=== PATIENT | male | born 1990 | race Caucasian/White ===

== ENCOUNTER 2022-09-02 03:52 | Outpatient (CLI) | payer SELFPAY ==
[2022-09-02 13:46] LABS: ESR < 1 mm/hr (0-15)
[2022-09-02 14:05] LABS: Calculated LDL 198 mg/dL (<100); Cholesterol 268 mg/dL (<200); HDL Cholesterol 42 mg/dL (40-60); TSH (W/Ref FT4) 0.93 uIU/mL (0.36-3.74); Triglyceride 144 mg/dL (<150)
[2022-09-02 14:18] LABS: C-Reactive Protein < 0.05 mg/dL (0.0-0.3)
[2022-09-05 11:58] LABS: Apolipoprotein A1, S 99 mg/dL (>=120); Apolipoprotein B, S 143 mg/dL (See Comment); Apolipoprotein B/A 1 ratio 1.4 (See Comment)
== END 2022-09-02 03:53 | disposition home or self-care (01) ==
PROVIDERS: PCP Family Medicine; Visit Provider Family Medicine
DX: E78.00 Pure hypercholesterolemia, unspecified (principal)
CPT/HCPCS: 36415; 80061; 82172; 85652; 84443; 86140

== ENCOUNTER 2025-05-30 12:14 | Observation (INO) | payer SELFPAY ==
[2025-05-30] VITALS (42 sets, daily range): BP systolic 96–138; BP diastolic 63–89; PULSE 68–126; RESP 12–25; TEMP 36.5–36.7; O2SAT 95–99
--- NOTE | 2025-05-30 12:15 | RT.EKG_ITS ---
APPROVED REPORT Exam: Resting ECG Reason for Exam: chest pain Patient Location: E HR:72 bpm ECG Measurements Heart Rate 72 AXIS PA 149 P 57 QRSd 109 QRS 8 QT 372 T 4 QTc 407 Conclusion Sinus rhythm...normal P axis, V-rate 60- 99 No Occlusion ME
[2025-05-30] MEDS: Ondansetron 4 MG/2 ML VIAL IVP ×2 (12:38→21:56)
[2025-05-30] MEDS: Pantoprazole 40 MG VIAL 80 MG IVP (12:38)
--- NOTE | 2025-05-30 13:03 | ED.GENADUL_ITS ---
Discharge Plan Disposition Patient Disposition: Admit to [facility] Discharge Details Clinical Impression: Acute upper GI bleed Admit Date/Time: 05/30/25 14:26 Admit Provider: Derick Barton Attending Provider: Derick Barton Primary Care Provider: Darnell Potts ED Provider: Christian Sierra Discharge Data Discharge Date/Time-TO BE ENTERED AT DEPARTURE: 05/30/25 15:59 HPI General Date/Time Provider Initiated Documentation: 05/30/25 12:20 . HPI Narrative: MDM Stable appearing normotensive and not tachycardic no anticoagulant 34-year-old male with history concerning for acute GI bleed for which patient received 80 mg of pantoprazole ondansetron and n.p.o. with 1 L IV fluid. Given reported black stools and coffee-ground emesis and concern for upper GI bleed so do not feel patient requires a CT angiogram. Nonalcoholic to suggest increased risk for variceal bleeds. Given increased stress peptic ulcer disease certainly high of the differential. Patient is not anticoagulated to suggest benefit from any reversal. Given chest pain I ordered an ECG which showed sinus rhythm at a rate of 72. Normal axis. QTc within normal limits. No acute injury pattern. Will obtain troponins. Anticipate patient will require hospitalization for possibility of endoscopy tomorrow. 1:40 PM Comprehensive metabolic panel with normal renal function. No significant LFT abnormalities. No significant electrolyte abnormalities. Mildly elevated BUN. I was in touch with Dr. Huerta who will see the patient. Patient will likely benefit from being kept n.p.o. I was in touch with Dr. Barton who will admit the patient to the hospital. Will repeat H&H at 3:30 PM 3:40 PM Repeat reassuring hemoglobin from 12.4-12.0. Patient has not had any black nor bloody stools in the ED. He has not had any hematemesis. HPI This is a male with a history of kidney stones presenting with vomiting. The patient experienced an episode of coffee ground vomiting last night, followed by a black bowel movement. This morning, he had another episode of coffee ground vomiting. He reports no history of ulcers but has significant indigestion and stress. His initial blood pressure was recorded as 88/49, which subsequently decreased. He was diaphoretic upon arrival. He is not on any anticoagulants but did take two regular aspirin tablets last night. He does not consume alcohol. He reports mild abdominal pain and indigestion over the past week. After eating last night, he felt unwell and experienced dry vomiting. This morning, he noticed dark stools and coughed up a small amount of blood. He has never undergone a colonoscopy or endoscopy. He also reports mild chest pain, which his doctor attributes to anxiety, and significant acid reflux. He has been under a lot of stress recently due to an upcoming trip to [facility]. He has been taking Pepcid AC for his symptoms. Patient did take some aspirin last night but denies routine ibuprofen and NSAIDs. Exam General: Well-appearing in no acute distress speaking in complete sentences. Head: Normocephalic, atraumatic. Eye: Extraocular eye movements intact. No conjunctival injection. No scleral icterus. Ear, nose, mouth, throat: Dry mucous membranes. Normal voice, handling secretions normally. Neck: Trachea midline. Cardiovascular: Well-perfused distal extremities. Regular rate and rhythm. Respiratory: Nonlabored respiration. Clear lungs bilaterally Gastrointestinal: Nondistended abdomen.Soft. Nontender. Musculoskeletal: No edema. Moving all 4 extremities spontaneously. Skin: Normal for age and race, grossly normal temperature and turgor. No acute rash. Neurologic: Alert and appropriate, no apparent acute deficits. Psychiatric: Mood and manner are appropriate. Grooming and personal hygiene are appropriate. Related Data Home Medications ?Medication ?Instructions ?Recorded ?Confirmed alprazolam 1 mg tablet 1 mg PO BID PRN anxiety 05/1605/30/25 amitriptyline 25 mg tablet 25 mg PO HS 05/30/25 Allergies Allergy/AdvReac Type Severity Reaction Status Date / Time No Known Allergies Allergy Unverified 05/30/25 16:07 General Stated Complaint: GI Bleed EHRMINIA: 2 Course Vital Signs Vital signs: Vital Signs Temperature 36.5 C 05/30/25 12:15 Pulse 68 05/30/25 12:15 Respiratory Rate 20 05/30/25 12:15 Blood Pressure 114/67 05/30/25 12:15 Pulse Oximetry 99 05/30/25 12:15 Temperature 36.5 C 05/30/25 12:15 Temperature Source Oral 05/30/25 12:15 Pulse 68 05/30/25 12:15 Respiratory Rate 20 05/30/25 12:15 Blood Pressure 114/67 05/30/25 12:15 Blood Pressure Position Supine 05/30/25 12:15 Pulse Oximetry 99 05/30/25 12:15 Oxygen Delivery Method Room Air 05/30/25 12:15 Oxygen Flow Rate 0 05/30/25 12:15 Critical Care Time Critical Care Time Critical Care Time: Yes Total Critical Care Time: 45 Attestation: Acute GI bleed hypotension PFSH All Active Problems (Updated 05/30/25 @ 13:08 by Christian Sierra MD) Acute upper GI bleed (Acute) Social History Smoking/Tobacco Use Status: Current-Occasional Tobacco Type: cigars and e- cigarettes Smoking risk assessment performed?: Yes Alcohol Intake: former Drug use: Rarely Substance use type: marijuana Housing: house Do you feel safe at home: Yes Do you feel safe in your relationship?: Yes
[2025-05-30 13:08] LABS: Abs Immature Grans 0.09 10^3/uL (0.0-0.06); HCT 36.9 % (40.0-50.0); HGB 12.4 g/dL (13.5-17.5); Immature Grans % 0.9 %; MCH 31.8 pg (27.0-33.0); MCHC 33.6 % (32.0-36.0); MCV 95 fL (80-95); MPV 9.2 fL (8.0-11.0); Platelet Count 175 10^3/uL (130-400); RBC 3.90 10^6/uL (4.36-5.78); RDW 13.1 % (11.8-14.1); RDW-SD 45.1 fL; WBC 10.33 10^3/uL (4.4-10.8)
[2025-05-30 13:33] LABS: Lipase 21 U/L (<53)
[2025-05-30 13:34] LABS: Magnesium 1.8 mg/dL (1.6-2.6); Troponin I 13 ng/L (<54)
[2025-05-30 13:35] LABS: ALT 56 U/L (10-49); AST 23 U/L (<34); Albumin 4.0 g/dL (3.2-5.0); Alkaline Phosphatase 61 U/L (46-116); Anion Gap 7.5 mmol/L (3-11); BUN 25 mg/dL (9-23); Bilirubin, Total 0.3 mg/dL (0.2-1.2); CO2 26.5 mmol/L (20.0-31.0); Calcium 7.8 mg/dL (8.3-10.6); Chloride 109 mmol/L (98-107); Glucose 115 mg/dL (74-106); Potassium 4.6 mmol/L (3.5-5.1); Sodium 143 mmol/L (136-145); Total Protein 6.1 g/dL (5.7-8.2)
--- NOTE | 2025-05-30 14:15 | SCONE_ITS ---
Date of service: 05/30/25 Time of Service: 14:15 Assessment and Plan Assessment and plan (1) Acute upper GI bleed: Status: Acute Assessment and plan: With reported episode of vomiting followed by some signs and symptoms of gastrointestinal bleeding I think Sabiha-Salazar tear would be the most likely diagnosis. Although has had some longstanding dyspepsia type symptoms, and certainly gastritis could also be the source here. He already has intravenous access established, and the blood samples been obtained. I recommend intravenous PPI therapy, and checking his hemoglobin every 6 hours. Assuming that stabilizes, he can probably be treated with a PPI as an outpatient. It would also be worth sending a stool sample to rule out Helicobacter pylori as a source of gastritis, which could also result in gastric ulcers and bleeding. If he demonstrates signs of ongoing bleeding, or any hemodynamic instability that is refractory to resuscitation, then urgent EGD would be reasonable. History of Present Illness History of Present Illness Chief Complaint: Coffee-ground emesis Narrative: Akin is 34 years old. Came to the emergency department this morning after feeling lightheaded, dizzy, and with a small amount of coffee-ground emesis, perhaps some hematemesis. He says it all started yesterday when he had acute onset of nausea. This is not uncommon for him, and after a short period of time, he did have an episode of vomiting. He felt near immediate relief of his nausea. This morning, he developed what sounds like a little bit of posttussive emesis, I was concerned that there was some dark character to it, and we cleared his throat, perhaps a little bit of blood streaking. He also had a bowel movement that was dark black. In the emergency department, he did have some hypotension, was treated with some fluid resuscitation. Hemoglobin was measured at 12.4, and was normocytic in nature. Akin also mentioned that he took approximately 650 mg of aspirin this morning when he was feeling a little bit ill. Review of systems is significant for dyspepsia, which is often times treated with omeprazole or Prevacid as needed. He has never had any surgeries in his abdomen before. He denies any known family history of bleeding disorders. Review of Systems Constitutional Constitutional: Reports fatigue, Denies fever(s) and Reports weakness Eyes Eyes: Reports system reviewed and no additional complaints, except as documented ENT Ears, Nose, Mouth, and Throat: Reports system reviewed and no additional complaints, except as documented Cardiovascular Cardiovascular: Denies chest pain and Denies dyspnea Respiratory Respiratory: Denies chest congestion, Denies cough and Denies dyspnea Gastrointestinal Gastrointestinal: Denies abdominal pain, Reports change in stool character, Reports heartburn, Reports nausea and Reports vomiting Genitourinary Genitourinary: Reports system reviewed and no additional complaints, except as documented Musculoskeletal Musculoskeletal: Reports system reviewed and no additional complaints, except as documented Neurologic Neurologic: Reports weakness Endocrine Endocrine: Reports fatigue Hematologic/Lymphatic Hematologic/Lymphatic: Denies easy bleeding and Denies easy bruising PFSH All Active Problems (Updated 05/30/25 @ 13:08 by Christian Sierra MD) Acute upper GI bleed (Acute) Social History Smoking/Tobacco Use Status: Current-Occasional Tobacco Type: cigars and e- cigarettes Smoking risk assessment performed?: Yes Alcohol Intake: former Drug use: Rarely Substance use type: marijuana Housing: house Do you feel safe at home: Yes Do you feel safe in your relationship?: Yes Exam Const General: cooperative, comfortable and no acute distress Nutritional Appearance: average body habitus Orientation: alert, awake and oriented x3 HENMT Head: normal to inspection Eyes General: appearance normal, both eyes and all related structures Neck Neck: normal visual inspection, full ROM and no lymphadenopathy Resp Effort & Inspection: normal respiratory effort and able to speak in complete sentences Auscultation: clear to auscultation bilaterally Cardio Rate: regular rate Rhythm: regular rhythm Heart Sounds: S1 normal and S2 normal GI Inspection: normal to inspection and non-distended Palpation: soft, no guarding and nontender Results Last Vital Signs Temp 97.7 F 05/30/25 12:15 Pulse 84 05/30/25 14:02 Resp 16 05/30/25 13:38 BP 97/67 L 05/30/25 14:02 Pulse Ox 98 05/30/25 14:02 Labs 05/30/25 13:00 05/30/25 13:00 Labs: Laboratory Results - last 24 hr 05/30/25 13:00 WBC 10.33 RBC 3.90 L Hgb 12.4 L Hct 36.9 L MCV 95 MCH 31.8 MCHC 33.6 RDW 13.1 Plt Count 175 MPV 9.2 Immature Gran % 0.9 Neutrophils % 77.3 Lymphocytes % 15.7 Monocytes % 5.3 Eosinophils % 0.4 Basophils % 0.4 Nucleated RBC % 0.0 Absolute Neutrophils 7.99 H Absolute Lymphocytes 1.62 Absolute Monocytes 0.55 Absolute Eosinophils 0.04 Absolute Basophils 0.04 Sodium 143 Potassium 4.6 Chloride 109 H Carbon Dioxide 26.5 Anion Gap 7.5 BUN 25 H Creatinine 0.99 Est GFR (CKD-EPI 2020) 85.25 Glucose 115 H Calcium 7.8 L Magnesium 1.8 Total Bilirubin 0.3 AST 23 ALT 56 H Alkaline Phosphatase 61 Troponin I 13 Total Protein 6.1 Albumin 4.0 Lipase 21 Ethyl Alcohol < 3.0 ABO/Rh O Positive Antibody Screen NEGATIVE
--- NOTE | 2025-05-30 14:38 | W.PM.HP.N ---
Date of service: 05/30/25 Time of Service: 14:00 Assessment and Plan Assessment and plan (1) Acute upper GI bleed: Status: Acute Assessment and plan: Prior episodes of vomiting but without bleeding Possible Sabiha Salazar tear, possible H pylori Dr Huerta advised overnight monitoring, likely no intervention if his condition does not worsen H&H at 22:00 tonight, morning labs Telemetry (2) Generalized anxiety disorder: Status: Acute Assessment and plan: Continue home benzodiazepine and TCA History of Present Illness History of Present Illness Chief Complaint: bloody vomit Narrative: Akin Barillas is a 34 yaer old man presenting May 30 after several hours of multiple episodes of vomiting with blood and stooling with blood. Patient called for help when he started having paraesthesias. He reports that the vomit the previous evening occurred after eating and was brown and chunky. The stool this morning was black and sticky. He takes medications for anxiety; otherwise he has no chronic medical problems. He rarely drinks EtOH. He took 2 aspirin the previous evening. He has chronic chest pressure and GERD which he understands to be due to anxiety. He does take an H2 rick for GERD. No recent NSAIDs, rarely used. No shortness of breath, no abdominal pain. He was diaphoretic on arrival. In the ED his vitals were within normal limits initially, with intermittent low BPs to 90's / 60's after arrival. EKG with NSR. Hemoglobin in the 12's, again on repeat. Labs otherwise unremarkable. Dr Huerta, general surgery, was consulted and advised overnight monitoring, possible EGD if he has worsening symptoms or anemia. He was given pantoprazole and ondansetron. PMH includes anxiety and he is on alprazolam and amitriptyline. PFSH All Active Problems (Updated 05/30/25 @ 18:29 by Derick Barton MD) Generalized anxiety disorder (Acute) Acute upper GI bleed (Acute) Social History Smoking/Tobacco Use Status: Current-Occasional Tobacco Type: cigars and e-cigarettes Smoking risk assessment performed?: Yes Alcohol Intake: former Drug use: Rarely Substance use type: marijuana Housing: house Do you feel safe at home: Yes Do you feel safe in your relationship?: Yes Meds Allergies and Home Medications Allergies Allergy/AdvReac Type Severity Reaction Status Date / Time No Known Allergies Allergy Unverified 05/30/25 16:07 Home Medications ?Medication ?Instructions ?Recorded ?Confirmed ?Type alprazolam 1 mg tablet 1 mg PO BID PRN anxiety 05/30/25 05/30/25 History amitriptyline 25 mg tablet 25 mg PO HS 05/30/25 05/30/25 History Exam Narrative Exam Narrative: General: This is a pleasant man in no distress HEENT: Normocephalic, atraumatic CV: RRR Resp: CTAB Abd: soft, NTND MSK: voluntary motion x4 Neuro: awake, alert, no focal deficits Results Labs 05/30/25 15:20 05/30/25 13:00 Labs: Laboratory Results - last 24 hr 05/30/25 13:00 WBC 10.33 RBC 3.90 L Hgb 12.4 L Hct 36.9 L MCV 95 MCH 31.8 MCHC 33.6 RDW 13.1 Plt Count 175 MPV 9.2 Immature Gran % 0.9 Neutrophils % 77.3 Lymphocytes % 15.7 Monocytes % 5.3 Eosinophils % 0.4 Basophils % 0.4 Nucleated RBC % 0.0 Absolute Neutrophils 7.99 H Absolute Lymphocytes 1.62 Absolute Monocytes 0.55 Absolute Eosinophils 0.04 Absolute Basophils 0.04 Sodium 143 Potassium 4.6 Chloride 109 H Carbon Dioxide 26.5 Anion Gap 7.5 BUN 25 H Creatinine 0.99 Est GFR (CKD-EPI 2020) 85.25 Glucose 115 H Calcium 7.8 L Magnesium 1.8 Total Bilirubin 0.3 AST 23 ALT 56 H Alkaline Phosphatase 61 Troponin I 13 Total Protein 6.1 Albumin 4.0 Lipase 21 Ethyl Alcohol < 3.0 ABO/Rh O Positive Antibody Screen NEGATIVE Last Vital Signs Temp 36.5 C 05/30/25 12:15 Pulse 84 05/30/25 14:02 Resp 16 05/30/25 13:38 BP 97/67 L 05/30/25 14:02 Pulse Ox 98 05/30/25 14:02 VTE Prohylaxis Risk Level: Low Risk Contraindications: Active bleed/high bleed risk Prophylaxis: Mechanical Time Spent Time spent with Patient: 40-54 minutes Time was spent: preparing to see the patient(eg.review tests), obtaining and/or reviewing separately otained hiistory, ordering medications,tests, procedures, referring, communicating with other health customer care coordinator, indepentently interpreting results, counseling the patient and care coordination
[2025-05-30 15:26] LABS: HCT 35.8 % (40.0-50.0); HGB 12.0 g/dL (13.5-17.5)
--- NOTE | 2025-05-30 15:32 | W.PC.ACHO ---
Registration Status: REG ER Primary Language: Preferred Language: ED Information & Data Chief Complaint GI Bleed 05/30/25 13:34 Chief Complaint GI Bleed 05/30/25 13:08 Triage Note Started vomiting last night, 05/30/25 12:15 blood noted in vomit. BM last evening noted to have blood in it. Today still vomiting blood. Pt called 06-16 when lips and body started feeling numb. Most Recent Vital Signs Temperature 36.5 C 05/30/25 12:15 Temperature Source Oral 05/30/25 12:15 Pulse 79 05/30/25 14:39 Pulse 89 05/30/25 13:38 Respiratory Rate 16 05/30/25 13:38 Blood Pressure 117/89 05/30/25 14:39 Blood Pressure Mean 98 05/30/25 14:39 Blood Pressure Position Supine 05/30/25 12:15 Pulse Oximetry 99 05/30/25 14:39 Oxygen Delivery Method Room Air 05/30/25 14:39 Oxygen Flow Rate 0 05/30/25 14:39 Precautions Isolation Standard precaution 05/30/25 13:34 IV IV Catheter Type [Left Peripheral IV Antecubital] IV Catheter Type [Right Peripheral IV Antecubital] IV Catheter Gauge [Left 18 Antecubital] IV Catheter Gauge [Right 18 Antecubital] Diet Orders Category Date Time Status npo [Nothing Per Oral] [DIET] Nutrition 05/30/25 12:22 Active Diagnostics 05/30/25 05/30/25 05/30/25 Range/Units 15:20 15:05 13:00 WBC 10.33 (4.4-10.8) 10^3/uL RBC 3.90 L (4.36-5.78) 10^6/uL Hgb 12.0 L 12.4 L (13.5-17.5) g/dL Hct 35.8 L 36.9 L (40.0-50.0) % MCV 95 (80-95) fL MCH 31.8 (27.0-33.0) pg MCHC 33.6 (32.0-36.0) % RDW 13.1 (11.8-14.1) % Plt Count 175 (130-400) 10^3/uL MPV 9.2 (8.0-11.0) fL Immature Gran % 0.9 % Neutrophils % 77.3 % Lymphocytes % 15.7 % Monocytes % 5.3 % Eosinophils % 0.4 % Basophils % 0.4 % Nucleated RBC % 0.0 (0.0-0.3) % Absolute Neutrophils 7.99 H (1.2-6.7) 10^3/uL Absolute Lymphocytes 1.62 (1.2-3.4) 10^3/uL Absolute Monocytes 0.55 (0.1-0.8) 10^3/uL Absolute Eosinophils 0.04 (0.0-0.7) 10^3/uL Absolute Basophils 0.04 (0.0-0.2) 10^3/uL Sodium 143 (136-145) mmol/L Potassium 4.6 (3.5-5.1) mmol/L Chloride 109 H (98-107) mmol/L Carbon Dioxide 26.5 (20.0-31.0) mmol/L Anion Gap 7.5 (3-11) mmol/L BUN 25 H (9-23) mg/dL Creatinine 0.99 (0.73-1.18) mg/dL Est GFR (CKD-EPI 2020) 85.25 (mL/min/1.73m2) Glucose 115 H (74-106) mg/dL Calcium 7.8 L (8.3-10.6) mg/dL Magnesium 1.8 (1.6-2.6) mg/dL Total Bilirubin 0.3 (0.2-1.2) mg/dL AST 23 (<34) U/L ALT 56 H (10-49) U/L Alkaline Phosphatase 61 (46-116) U/L Troponin I Pending 13 (<54) ng/L Total Protein 6.1 (5.7-8.2) g/dL Albumin 4.0 (3.2-5.0) g/dL Lipase 21 (<53) U/L Ethyl Alcohol < 3.0 (<3) mg/dL ABO/Rh O Positive Antibody Screen NEGATIVE Intake and Output - 24 Hour Total 05/30/25 12:00 thru 05/30/25 13:34 Weight 103.918 kg Other: Emesis Description Coffee Grounds Falls Risk Assessment History of Falls No History 05/30/25 13:34 Fall Total Score 0 05/30/25 13:34 Level of Risk Standard/Low Risk 05/30/25 13:34 Problems Acute upper GI bleed (Acute) Attestation Statement: By documenting the first initial, last name, and credentials of the reporting nurse below, both parties acknowledge that all relevant information regarding the patient handoff has been communicated, and that all questions have been addressed to ensure continuity and safety of care. Additional Patient Information/Comments: Report Received From: Mary Lou King
[2025-05-30 17:14] LABS: Troponin I 8 ng/L (<54)
--- NOTE | 2025-05-30 18:30 | W.PC.ACHO ---
Registration Status: ADM JED Primary Language: Preferred Language: ED Information & Data Chief Complaint GI Bleed 05/30/25 13:34 Chief Complaint GI Bleed 05/30/25 13:08 Triage Note Started vomiting last night, 05/30/25 12:15 blood noted in vomit. BM last evening noted to have blood in it. Today still vomiting blood. Pt called 06-16 when lips and body started feeling numb. Most Recent Vital Signs Temperature 36.7 C 05/30/25 18:27 Temperature Source Temporal Artery Scan 05/30/25 18:27 Pulse 74 05/30/25 18:27 Pulse 79 05/30/25 17:00 Respiratory Rate 16 05/30/25 18:27 Respiratory Effort Normal 05/30/25 16:21 Respiratory Depth Normal 05/30/25 16:21 Respiratory Pattern Normal 05/30/25 16:21 Blood Pressure 138/85 05/30/25 18:27 Blood Pressure Mean 102 05/30/25 18:27 Blood Pressure Position Supine 05/30/25 16:21 Pulse Oximetry 98 05/30/25 18:27 Oxygen Delivery Method Room Air 05/30/25 18:27 Oxygen Flow Rate 0 05/30/25 18:27 Pain Level 0 05/30/25 18:27 Allergies No Known Allergies Allergy (Unverified 05/30/25 16:07) Precautions Isolation Standard precaution 05/30/25 13:34 IV IV Catheter Type [Left Peripheral IV Antecubital] IV Catheter Type [Right Peripheral IV Antecubital] IV Catheter Gauge [Left 18 Antecubital] IV Catheter Gauge [Right 18 Antecubital] Diet Orders Category Date Time Status npo [Nothing Per Oral] [DIET] Nutrition 05/30/25 12:22 Active Diagnostics 05/30/25 05/30/25 05/30/25 Range/Units 22:00 16:30 15:20 WBC (4.4-10.8) 10^3/uL RBC (4.36-5.78) 10^6/uL Hgb Pending 12.0 L (13.5-17.5) g/dL Hct Pending 35.8 L (40.0-50.0) % MCV (80-95) fL MCH (27.0-33.0) pg MCHC (32.0-36.0) % RDW (11.8-14.1) % Plt Count (130-400) 10^3/uL MPV (8.0-11.0) fL Immature Gran % % Neutrophils % % Lymphocytes % % Monocytes % % Eosinophils % % Basophils % % Nucleated RBC % (0.0-0.3) % Absolute Neutrophils (1.2-6.7) 10^3/uL Absolute Lymphocytes (1.2-3.4) 10^3/uL Absolute Monocytes (0.1-0.8) 10^3/uL Absolute Eosinophils (0.0-0.7) 10^3/uL Absolute Basophils (0.0-0.2) 10^3/uL Sodium (136-145) mmol/L Potassium (3.5-5.1) mmol/L Chloride (98-107) mmol/L Carbon Dioxide (20.0-31.0) mmol/L Anion Gap (3-11) mmol/L BUN (9-23) mg/dL Creatinine (0.73-1.18) mg/dL Est GFR (CKD-EPI 2020) (mL/min/1.73m2) Glucose (74-106) mg/dL Calcium (8.3-10.6) mg/dL Magnesium (1.6-2.6) mg/dL Total Bilirubin (0.2-1.2) mg/dL AST (<34) U/L ALT (10-49) U/L Alkaline Phosphatase (46-116) U/L Troponin I 8 (<54) ng/L Total Protein (5.7-8.2) g/dL Albumin (3.2-5.0) g/dL Lipase (<53) U/L Ethyl Alcohol (<3) mg/dL ABO/Rh Antibody Screen 05/30/25 05/30/25 Range/Units 15:05 13:00 WBC 10.33 (4.4-10.8) 10^3/uL RBC 3.90 L (4.36-5.78) 10^6/uL Hgb 12.4 L (13.5-17.5) g/dL Hct 36.9 L (40.0-50.0) % MCV 95 (80-95) fL MCH 31.8 (27.0-33.0) pg MCHC 33.6 (32.0-36.0) % RDW 13.1 (11.8-14.1) % Plt Count 175 (130-400) 10^3/uL MPV 9.2 (8.0-11.0) fL Immature Gran % 0.9 % Neutrophils % 77.3 % Lymphocytes % 15.7 % Monocytes % 5.3 % Eosinophils % 0.4 % Basophils % 0.4 % Nucleated RBC % 0.0 (0.0-0.3) % Absolute Neutrophils 7.99 H (1.2-6.7) 10^3/uL Absolute Lymphocytes 1.62 (1.2-3.4) 10^3/uL Absolute Monocytes 0.55 (0.1-0.8) 10^3/uL Absolute Eosinophils 0.04 (0.0-0.7) 10^3/uL Absolute Basophils 0.04 (0.0-0.2) 10^3/uL Sodium 143 (136-145) mmol/L Potassium 4.6 (3.5-5.1) mmol/L Chloride 109 H (98-107) mmol/L Carbon Dioxide 26.5 (20.0-31.0) mmol/L Anion Gap 7.5 (3-11) mmol/L BUN 25 H (9-23) mg/dL Creatinine 0.99 (0.73-1.18) mg/dL Est GFR (CKD-EPI 2020) 85.25 (mL/min/1.73m2) Glucose 115 H (74-106) mg/dL Calcium 7.8 L (8.3-10.6) mg/dL Magnesium 1.8 (1.6-2.6) mg/dL Total Bilirubin 0.3 (0.2-1.2) mg/dL AST 23 (<34) U/L ALT 56 H (10-49) U/L Alkaline Phosphatase 61 (46-116) U/L Troponin I Cancelled 13 (<54) ng/L Total Protein 6.1 (5.7-8.2) g/dL Albumin 4.0 (3.2-5.0) g/dL Lipase 21 (<53) U/L Ethyl Alcohol < 3.0 (<3) mg/dL ABO/Rh O Positive Antibody Screen NEGATIVE Intake and Output - 24 Hour Total 05/30/25 12:00 thru 05/30/25 16:21 Weight 98.8 kg Other: Emesis Description Coffee Grounds Falls Risk Assessment History of Falls No History 05/30/25 16:21 Contributing Factors No Factors 05/30/25 16:21 Ambulatory Aids Independent 05/30/25 16:21 Tubes/Lines None 05/30/25 16:21 Gait Evaluation No gait disturbance 05/30/25 16:21 Cognition No cognitive impairment 05/30/25 16:21 Fall Total Score 0 05/30/25 16:21 Level of Risk Standard/Low Risk 05/30/25 16:21 Problems Acute upper GI bleed (Acute) Attestation Statement: By documenting the first initial, last name, and credentials of the reporting nurse below, both parties acknowledge that all relevant information regarding the patient handoff has been communicated, and that all questions have been addressed to ensure continuity and safety of care. Additional Patient Information/Comments: A&O x4 Independent, lungs clear, heart regular, +bs, Anxious, takes scheduled meds for anxiety. here for GI bleed, H&H stable. NPO allowed Ice chips. Report Received From: Evelyn Seay RN in ICU at 1820.
[2025-05-30] MEDS: ALPRAZolam 0.5 MG TAB 1 MG PO (18:34)
[2025-05-30] MEDS: Amitriptyline 25 MG TAB PO (21:41)
[2025-05-30] MEDS: Normal Saline Flush 10 ML SYR IVP (21:41)
[2025-05-30] MEDS: Pantoprazole 40 MG VIAL IVP (21:56)
[2025-05-30 22:24] LABS: HCT 36.4 % (40.0-50.0); HGB 12.1 g/dL (13.5-17.5)
[2025-05-31 00:15] VITALS: RESP 18
[2025-05-31 06:54] LABS: Abs Immature Grans 0.03 10^3/uL (0.0-0.06); HCT 38.6 % (40.0-50.0); HGB 13.0 g/dL (13.5-17.5); Immature Grans % 0.4 %; MCH 31.7 pg (27.0-33.0); MCHC 33.7 % (32.0-36.0); MCV 94 fL (80-95); MPV 9.3 fL (8.0-11.0); Platelet Count 192 10^3/uL (130-400); RBC 4.10 10^6/uL (4.36-5.78); RDW 13.0 % (11.8-14.1); RDW-SD 44.9 fL; WBC 7.30 10^3/uL (4.4-10.8)
[2025-05-31 07:07] LABS: Magnesium 2.1 mg/dL (1.6-2.6)
[2025-05-31 07:08] LABS: ALT 67 U/L (10-49); AST 35 U/L (<34); Albumin 4.4 g/dL (3.2-5.0); Alkaline Phosphatase 59 U/L (46-116); Anion Gap 8 mmol/L (3-11); BUN 21 mg/dL (9-23); Bilirubin, Total 0.6 mg/dL (0.2-1.2); CO2 27.0 mmol/L (20.0-31.0); Calcium 9.2 mg/dL (8.3-10.6); Chloride 108 mmol/L (98-107); Glucose 99 mg/dL (74-106); Potassium 4.1 mmol/L (3.5-5.1); Sodium 143 mmol/L (136-145); Total Protein 6.7 g/dL (5.7-8.2)
[2025-05-31 07:24] VITALS: BP 118/74; PULSE 88; RESP 17; TEMP 36.7; O2SAT 98
[2025-05-31] MEDS: Normal Saline Flush 10 ML SYR IVP ×2 (07:50→09:39)
--- NOTE | 2025-05-31 08:38 | PGE_ITS ---
Date of Service Date of service: 05/31/25 Time of Service: 08:38 Assessment and Plan Assessment and plan (1) Acute upper GI bleed: Status: Acute Assessment and plan: Patient is a 34-year-old male who presented to the emergency department yesterday with concerning findings for GI bleeding. He notes an episode of forceful vomiting and then 12 hours later endorses coffee-ground emesis. He also endorses melanotic stool. He underwent further evaluation in the emergency department yesterday and was admitted for observation. This morning he endorses 1 firm dark bowel movement however denies any ongoing abdominal pain or nausea. On exam he is hemodynamically stable and his abdomen is soft and nontender to palpation. His labs are stable and reassuring this morning. Given these findings would recommend advancing diet as tolerated and no indication for urgent EGD. If tolerating regular diet could be discharged home potentially later today with PPI and follow-up in the general surgery clinic as an outpatient. This will be arranged through our clinic for outpatient EGD. Subjective Subjective Interval history since last seen: He notes he is doing well this morning. He denies nausea, vomiting, fevers, chills, abdominal pain. He does state he had 1 firm dark bowel movement this morning. He denies any further hematemesis. He notes that he does feel hungry this morning. Exam Narrative Exam Narrative: General: Well appearing, no acute distress. Skin: Good turgor, no visible rashes or lesion HEENT: Normocephalic, atraumatic CV: Regular rate Lungs: Bilateral equal chest rise, non-labored breathing Abdomen: Soft, non-tender, non-distended Extremities: Warm, well perfused Neurologic: No focal deficits Psychiatric: Alert and oriented, normal mood and affect Objective Last Vital Signs Temp 36.7 C 05/31/25 07:24 Pulse 88 05/31/25 07:24 Resp 17 05/31/25 07:24 BP 118/74 05/31/25 07:24 Pulse Ox 98 05/31/25 07:24 Laboratory Results - last 24 hr 05/30/25 05/30/25 05/30/25 13:00 15:05 15:20 WBC 10.33 RBC 3.90 L Hgb 12.4 L 12.0 L Hct 36.9 L 35.8 L MCV 95 MCH 31.8 MCHC 33.6 RDW 13.1 Plt Count 175 MPV 9.2 Immature Gran % 0.9 Neutrophils % 77.3 Lymphocytes % 15.7 Monocytes % 5.3 Eosinophils % 0.4 Basophils % 0.4 Nucleated RBC % 0.0 Absolute Neutrophils 7.99 H Absolute Lymphocytes 1.62 Absolute Monocytes 0.55 Absolute Eosinophils 0.04 Absolute Basophils 0.04 Sodium 143 Potassium 4.6 Chloride 109 H Carbon Dioxide 26.5 Anion Gap 7.5 BUN 25 H Creatinine 0.99 Est GFR (CKD-EPI 2020) 85.25 Glucose 115 H Calcium 7.8 L Magnesium 1.8 Total Bilirubin 0.3 AST 23 ALT 56 H Alkaline Phosphatase 61 Troponin I 13 Cancelled Total Protein 6.1 Albumin 4.0 Lipase 21 Ethyl Alcohol < 3.0 ABO/Rh O Positive Antibody Screen NEGATIVE 05/30/25 05/30/25 05/31/25 16:30 22:20 06:10 WBC 7.30 RBC 4.10 L Hgb 12.1 L 13.0 L Hct 36.4 L 38.6 L MCV 94 MCH 31.7 MCHC 33.7 RDW 13.0 Plt Count 192 MPV 9.3 Immature Gran % 0.4 Neutrophils % 59.3 Lymphocytes % 31.0 Monocytes % 7.4 Eosinophils % 1.4 Basophils % 0.5 Nucleated RBC % 0.0 Absolute Neutrophils 4.33 Absolute Lymphocytes 2.26 Absolute Monocytes 0.54 Absolute Eosinophils 0.10 Absolute Basophils 0.04 Sodium 143 Potassium 4.1 Chloride 108 H Carbon Dioxide 27.0 Anion Gap 8 BUN 21 Creatinine 0.99 Est GFR (CKD-EPI 2020) 85.25 Glucose 99 Calcium 9.2 Magnesium 2.1 Total Bilirubin 0.6 AST 35 ALT 67 H Alkaline Phosphatase 59 Troponin I 8 Total Protein 6.7 Albumin 4.4 Lipase Ethyl Alcohol ABO/Rh Antibody Screen VTE Prohylaxis Risk Level: Low Risk Contraindications: Active bleed/high bleed risk Prophylaxis: Mechanical Time Spent with Patient Time Spent with Patient: <25 minutes Time was spent: preparing to see the patient(eg.review tests), obtaining and/or reviewing separately otained hiistory, counseling the patient and care coordina tion
--- NOTE | 2025-05-31 08:48 | PDOC.CMIN ---
Date of service: 05/31/25 Time of Service: 08:48 Care Management Initial Assmt Initial Assessment Reason for Hospitalization: GI bleed Functional Status/Living Situation Patient Presentation: Akin was sitting up in his chair and awake when CM met with him. He presented to the ED for Town of Residence: [place] Resides with: Spouse (Lindsay) Significant Other/Family: [facility] Instrumental Activities of Daily Living (ADLs): Independent Medications Medication Management: No Issues/Barriers identified Advance Directives Advance Directives: Do you have an Advance Directive: N 05/30/25, 12:17 AD On File at [facility]: N 05/30/25, 12:17 Date Asked 05/30/25 05/30/25, 12:17 AD Date Reviewed COLST On File at [facility] No 05/30/25, 15:07 COLST Date Scanned Code Status Resuscitation Status Full Code Portal Pt does not currently have a portal and education provided: Yes Care Team Visit Care Team Role Provider Type Darnell Potts Primary Care Provider NON-[facility] STAFF PHYSICIAN Christian Sierra MD Emergency Provider [facility] STAFF PHYSICIAN Derick Barton MD Admit Provider [facility] STAFF PHYSICIAN Attending Provider Discharge Potential Discharge Needs: PCP F/U Appt Anticipated Barriers to Discharge: Medical Status Patient/Family Education Needs: Review discharge instructions, discuss Ask Me Three Transportation: Private vehicle Plan: Anticipate Akin will be discharged home once medically ready. It is recommended he follow up with his community provider and continue per his discharge plan of care. He will transport via private vehicle by family. CM will follow. Social Determinants of Health Screening Social Determinants of health last assessed in clinic: 05/31/25 Will the Patient Participate in the Screening?: Yes Do you worry about having a steady place to live?: no Problems where you live: no known problems In the past 12 months, have you had to go without electric, gas, oil or water in your home?: no 1. Within the past 12 months, we worried whether our food would run out before we got money to buy more.: Don't know/refused 2. Within the past 12 months, the food we bought just didn't last and we didn't have money to get more.: Don't know/refused Has lack of transportation kept you from medical appointments or from doing things needed for daily living?: no Has anyone in your life made you feel unsafe or unsupported?: no How hard is it for you to pay for the very basics like food, housing, medical care, and heating? Would you say it is:: Not hard at all Do you want help finding or keeping work or a job?: I do not need or want help If for any reason you need help with day-to-day activities such as bathing, preparing meals, shopping, managing finances, etc., do you get the help you need?: I don?t need any help How often do you feel lonely or isolated from those around you?: Never Do you speak a language other than Latvian at home?: Yes Does the patient want assistance with any of the above?: Yes Health Related Social Needs Health related social needs: education (Z55.6) Health related social needs details: none PFSH All Active Problems (Updated 05/30/25 @ 18:29 by Derick Barton MD) Generalized anxiety disorder (Acute) Acute upper GI bleed (Acute) Social History Smoking/Tobacco Use Status: Current-Occasional Tobacco Type: cigars and e-cigarettes Smoking risk assessment performed?: Yes Alcohol Intake: former Drug use: Rarely Substance use type: marijuana Housing: house Do you feel safe at home: Yes Do you feel safe in your relationship?: Yes Readmission Within the Past 30 Days Yes or No: No
[2025-05-31] MEDS: ALPRAZolam 0.5 MG TAB 1 MG PO (09:39)
[2025-05-31] MEDS: Pantoprazole 40 MG VIAL IVP (09:40)
[2025-05-31 11:15] VITALS: BP 119/74; PULSE 73; RESP 18; TEMP 36.7; O2SAT 98
--- NOTE | 2025-05-31 11:27 | CMDISCH_ITS ---
Date of service: 05/31/25 Time of Service: 11:28 LACE Index Scoring Tool Questions: Length of Stay (in days): 1 Was the patient admitted via the E.D.?: Yes E.D. Visits: 1 Answers: Total Score: 5 Risk of Readmission: Low Risk Care Management Discharge Plan Reason for Hospitalization: GI bleed Discharge Plan: Akin will be discharged home today with no new services. It is recommended he follow up with his community provider and discharge plan of care. Referral to [facility] was sent with patient permission and patient financial assistance packet was given. He will transport home via [facility] private vehicle. Patient/Family Education Needs: Review discharge instructions, activity, limitations, and plan of care. Discuss ask me three. SDOH Health Related Social Needs: 2 Health related social needs education Health related social needs details none Health related social needs details: none
--- NOTE | 2025-05-31 12:02 | PHA.REVIEW2 ---
Pharmacy Admission Review Admission Clinical Review Admission Pharmacy Review: Generalized anxiety disorder (Acute) Acute upper GI bleed (Acute) No Known Allergies Allergy (Unverified 05/30/25 16:07) Resuscitation Status Full Code Height 5 ft 9 in Weight 98.8 kg Pharmacy Admission Review Renal Dosing Renal Dosing: BUN 21 mg/dL (9-23) 05/31/25 06:10 Creatinine 0.99 mg/dL (0.73-1.18) 05/31/25 06:10 CrCl ~ 119, no medication adjustments required at this time. Anticoagulation Anticoagulation: Hgb 13.0 g/dL (13.5-17.5) L 05/31/25 06:10 Hct 38.6 % (40.0-50.0) L 05/31/25 06:10 Plt Count 192 10^3/uL (130-400) 05/31/25 06:10 Creatinine 0.99 mg/dL (0.73-1.18) 05/31/25 06:10 Relevant Labs Relevant Labs: Sodium 143 mmol/L (136-145) 05/31/25 06:10 Potassium 4.1 mmol/L (3.5-5.1) 05/31/25 06:10 Chloride 108 mmol/L (98-107) H 05/31/25 06:10 Magnesium 2.1 mg/dL (1.6-2.6) 05/31/25 06:10 Cardiac Review Cardiac Review: Troponin I 8 ng/L (<54) 05/30/25 16:30
--- NOTE | 2025-05-31 13:11 | DSE_ITS ---
Date of service: 05/31/25 Time of Service: 08:00 DS: Diagnosis Discharge Diagnosis (1) Acute upper GI bleed: Status: Acute Discharge Plan Disposition Patient Disposition: Home Anticipated Discharge Date/Time: 05/31/25 13:07 Condition: Improving Discharge Details Reason For Visit: GI bleed Admit Date/Time: 05/30/25 14:26 Admit Provider: Derick Barton Attending Provider: Derick Barton Primary Care Provider: Darnell Potts Hospital Course Hospital Course: Akin Barillas is a 34 yaer old man presenting May 30 with bloody vomit and paraesthesias, admitted out of concern for GI bleed. He has shown no evidence of anemia or active bleed, and is no longer vomiting. He has been evaluated by general surgery, who recommend outpatient followup. At this time he is safe to return home, with outpatient followup in the surgery clinic. Home Meds and New Rx's Prescriptions: New omeprazole 20 mg capsule,delayed release(DR/EC) 20 mg PO DAILY Qty: 30 0RF ondansetron 4 mg tablet,disintegrating 4 mg PO Q8H PRNQty: 30 0RF Continued alprazolam 1 mg tablet 1 mg PO BID PRN (Reason: anxiety) Patient Comments: TAKE ONE TABLET BY MOUTH TWICE A DAY NEEDED FOR ANXIETY amitriptyline 25 mg tablet 25 mg PO HS Patient Comments: TAKE ONE TABLET BY MOUTH AT BEDTIME Discharge Instructions Instructions: Viral gastroenteritis in adults, Nausea and vomiting in adults Stand Alone Forms: Portal Information, Nursing Discharge Form Referrals: Ce Floers MD [ [facility] STAFF PHYSICIAN, Surgery] Benjamin Huerta MD [ [facility] STAFF PHYSICIAN, Surgery] Darnell Potts [Primary Care Provider] Referral Note: Your PCP will reach out, if you do not hear from them please call. Activity:: Activity as Tolerated Equipment/Supplies:: No Equipment Needed Diet:: As Tolerated Discharge Orders Discharge Orders: Discharge Order (Routine); Ordered 05/31/25 Ordered By: Derick Barton Discharge Data Discharge Date/Time-TO BE ENTERED AT DEPARTURE: 05/31/25 17:24 DS: Summary Time Spent with Patient providing and/or coordinating discharge services: Less than 30 minutes Status at Discharge Functional status at discharge: independent ambulation Overall status at discharge: patient is back to baseline Mental Status: mental status grossly normal Speech and Movement: speech and movement normal Mood: congruent mood Affect: normal affect Quality:SDOH Health Related Social Needs: Health related social needs education Health related social needs details none Health related social needs details: none Exam Narrative Exam Narrative: General: This is a pleasant man in no distress HEENT: Normocephalic, atraumatic CV: RRR Resp: CTAB Abd: soft, NTND MSK: voluntary motion x4 Neuro: awake, alert, no focal deficits Psych Mental Status: mental status grossly normal Speech and Movement: speech and movement normal Mood: congruent mood Affect: normal affect DS: Data Vitals/I&O Vitals and I&O: Vital Signs Temperature 36.7 C 05/31/25 11:15 Temperature Source Temporal Artery Scan 05/31/25 11:15 Pulse 73 05/31/25 11:15 Pulse 126 H 05/30/25 18:40 Respiratory Rate 18 05/31/25 11:15 Respiratory Effort Normal 05/30/25 16:21 Respiratory Depth Normal 05/30/25 16:21 Respiratory Pattern Normal 05/30/25 16:21 Blood Pressure 119/74 05/31/25 11:15 Blood Pressure Mean 89 05/31/25 11:15 Blood Pressure Position Supine 05/30/25 16:21 Pulse Oximetry 98 05/31/25 11:15 Oxygen Delivery Method Room Air 05/31/25 11:15 Oxygen Flow Rate 0 05/31/25 11:15 Pain Level 0 05/31/25 11:15 Comment pt sleeping 05/31/25 03:08 Intake & Output 05/30/25 05/31/25 05/31/25 23:59 11:59 23:59 Weight 98.8 kg Other: Urine Color Yellow Urine Appearance Clear Urine Odor Normal Comment Pt is voiding independently in the toilet. Stool Size Moderate Stool Characteristics Black Emesis Description None Data Completed and Pending Pending Labs at Discharge: 05/30/25 05/30/25 05/30/25 13:00 15:05 15:20 WBC 10.33 RBC 3.90 L Hgb 12.4 L 12.0 L Hct 36.9 L 35.8 L MCV 95 MCH 31.8 MCHC 33.6 RDW 13.1 Plt Count 175 MPV 9.2 Immature Gran % 0.9 Neutrophils % 77.3 Lymphocytes % 15.7 Monocytes % 5.3 Eosinophils % 0.4 Basophils % 0.4 Nucleated RBC % 0.0 Absolute Neutrophils 7.99 H Absolute Lymphocytes 1.62 Absolute Monocytes 0.55 Absolute Eosinophils 0.04 Absolute Basophils 0.04 Sodium 143 Potassium 4.6 Chloride 109 H Carbon Dioxide 26.5 Anion Gap 7.5 BUN 25 H Creatinine 0.99 Est GFR (CKD-EPI 2020) 85.25 Glucose 115 H Calcium 7.8 L Magnesium 1.8 Total Bilirubin 0.3 AST 23 ALT 56 H Alkaline Phosphatase 61 Troponin I 13 Cancelled Total Protein 6.1 Albumin 4.0 Lipase 21 Ethyl Alcohol < 3.0 ABO/Rh O Positive Antibody Screen NEGATIVE 05/30/25 05/30/25 05/31/25 16:30 22:20 06:10 WBC 7.30 RBC 4.10 L Hgb 12.1 L 13.0 L Hct 36.4 L 38.6 L MCV 94 MCH 31.7 MCHC 33.7 RDW 13.0 Plt Count 192 MPV 9.3 Immature Gran % 0.4 Neutrophils % 59.3 Lymphocytes % 31.0 Monocytes % 7.4 Eosinophils % 1.4 Basophils % 0.5 Nucleated RBC % 0.0 Absolute Neutrophils 4.33 Absolute Lymphocytes 2.26 Absolute Monocytes 0.54 Absolute Eosinophils 0.10 Absolute Basophils 0.04 Sodium 143 Potassium 4.1 Chloride 108 H Carbon Dioxide 27.0 Anion Gap 8 BUN 21 Creatinine 0.99 Est GFR (CKD-EPI 2020) 85.25 Glucose 99 Calcium 9.2 Magnesium 2.1 Total Bilirubin 0.6 AST 35 ALT 67 H Alkaline Phosphatase 59 Troponin I 8 Total Protein 6.7 Albumin 4.4 Lipase Ethyl Alcohol ABO/Rh Antibody Screen [facility] All Active Problems (Updated 06/01/25 @ 00:04 by CHICHO WINKLER) Generalized anxiety disorder (Acute) Acute upper GI bleed (Acute) Social History Smoking/Tobacco Use Status: Current-Occasional Tobacco Type: cigars and e- cigarettes Smoking risk assessment performed?: Yes Alcohol Intake: former Drug use: Rarely Substance use type: marijuana Housing: house Do you feel safe at home: Yes Do you feel safe in your relationship?: Yes Time Spent with Patient Time Spent with Patient: <45 minutes Time was spent: preparing to see the patient(eg.review tests), obtaining and/or reviewing separately otained hiistory, ordering medications,tests, procedures, referring, communicating with other health director of primary care, indepentently interpreting results, counseling the patient and care coordination
[2025-05-31 14:28] VITALS: BP 123/78; PULSE 81; RESP 18; TEMP 36.9; O2SAT 96
--- NOTE | 2025-05-31 21:39 | NUR.NOTE ---
pt calls concerned fish bone caused gi bleed, reports order for endo and colonoscopy but wonders if he needs a ctscan instead to find bone. Advised review with PCP in am about POC. Nursing Note:
== END 2025-05-31 17:24 | disposition home or self-care (01) ==
LOC: ER 15:10 → ICU 15:38 → MS 05-31 07:28
PROVIDERS: Admitting Provider Family Medicine; Emergency Provider Emergency Medicine; PCP Family Medicine; Responsible Provider Family Medicine; Visit Provider Family Medicine
DX: K92.0 Hematemesis (principal); K92.1 Melena; F41.1 Generalized anxiety disorder; F17.290 Nicotine dependence, other tobacco product, uncomplicated; R20.2 Paresthesia of skin
CPT/HCPCS: 00123; 36415; 80053; 83690; 86850; 86900; 86901; 93005; 96374; 96375; 99222; 99231; 99291; 80320; 83735; 84484; 85014; 85018; 85025; 93010; 99238; G0378; J2405; J2470